=== PATIENT | male | born 1965 | race American Indian/Alaskan Native ===

== ENCOUNTER 2020-05-19 10:00 | Inpatient (IN) | payer OTHER ==
[2020-05-19] MEDS ORDERED: SODIUM CHLORIDE 0.9% 1000 ML IV SOLN IV ONE (11:29)
--- NOTE | 2020-05-19 11:54 | Emergency Department Report ---
ED General Adult HPI - General Chief complaint: Urogenital-Male Stated complaint: HEMORRHOIDS Time Seen by Provider: 05/19/20 11:29 Source: patient Mode of arrival: Ambulatory Limitations: No Limitations - History of Present Illness Initial comments: 54-year male with a past medical history of hypertension, diabetes, gout, presents to the hospital complaining of rectal pain for the last 5 days. Contrary to triage patient denies that he has a history of hemorrhoids. He denies hematochezi. Pain is with the palpation and coughing. He has been experi encing intermittent fevers and chills with some mild nausea today. Patient denies any receptive anal intercourse. He denies vomiting, abdominal pain, cough, shortness of breath, loss of sense of taste or smell. Last negative Covid test was in "February or March". Patient is not vaccinated for Covid. - Related Data Home Medications Medication Instructions Recorded Confirmed Last Taken Losartan [Cozaar] 25 mg PO QDAY 05/19/20 05/19/20 Unknown amLODIPine [Norvasc] 5 mg PO DAILY 05/19/20 05/19/20 Unknown hydroCHLOROthiazide [HCTZ] 25 mg PO QDAY 05/19/20 05/19/20 Unknown metFORMIN [Glucophage] 500 mg PO BID 05/19/20 05/19/20 Unknown Allergies Allergy/AdvReac Type Severity Reaction Status Date / Time No Known Allergies Allergy Verified 05/19/20 11:49 ED Review of Systems ROS: Stated complaint: HEMORRHOIDS Other details as noted in HPI Comment: All other systems reviewed and negative ED Past Medical Hx - Past Medical History Previous Medical History?: Yes Hx Hypertension: Yes Hx Dementia: Yes Additional medical history: DM II; prior gout - Surgical History Past Surgical History?: No - Social History Smoking Status: Never Smoker Substance Use Type: Alcohol - Medications Home Medications: Home Medications Medication Instructions Recorded Confirmed Last Taken Type Losartan [Cozaar] 25 mg PO QDAY 05/19/20 05/19/20 Unknown History amLODIPine [Norvasc] 5 mg PO DAILY 05/19/20 05/19/20 Unknown History hydroCHLOROthiazide [HCTZ] 25 mg PO QDAY 05/19/20 05/19/20 Unknown History metFORMIN [Glucophage] 500 mg PO BID 05/19/20 05/19/20 Unknown History ED Physical Exam - General Limitations: No Limitations - Other Other exam information: General: No acute distress Head: Atraumatic Eyes: normal appearance ENT: Moist mucous membranes Neck: Normal appearance, no midline tenderness Chest: Clear to auscultation bilaterally CV: Regular rate and rhythm Abdomen: Soft, normal bowel sounds, nontender, nondistended, no rebound or guarding Rectal: Patient has tenderness at the right gluteal fold near the perianal area and also appears to have a tender area of swelling at the 12:00 area of the anal area. Back: Normal inspection Extremity: Normal inspection, full range of motion Neuro: Alert O x 3, no facial asymmetry, speech clear, no gross motor sensory deficit Psych: Appropriate behavior Skin: No rash ED Course Vital Signs 05/19/20 05/19/20 05/19/20 10:35 11:52 12:00 Temperature 100.7 F H Pulse Rate 110 H 97 H 89 Respiratory 22 Rate Blood Pressure 181/91 Blood Pressure 174/81 163/70 [Left] O2 Sat by Pulse 96 96 97 Oximetry 05/19/20 05/19/20 05/19/20 13:50 15:55 17:51 Temperature Pulse Rate 79 93 H 91 H Respiratory Rate Blood Pressure Blood Pressure 165/66 167/90 189/90 [Left] O2 Sat by Pulse 99 97 97 Oximetry 05/19/20 18:58 Temperature Pulse Rate 91 H Respiratory Rate Blood Pressure Blood Pressure 169/89 [Left] O2 Sat by Pulse 99 Oximetry - Reevaluation(s) Reevaluation #1: 05/19/20 16:02 Patient received over 3 L of normal saline and still has no urine output. Additional 1 L ordered. 05/19/20 16:11 Patient reports that he did not receive any improvement in pain after morphine 4 mg. Dilaudid 0.5 mg ordered 05/19/20 17:20 Nurse informed me that patient was not in the room when she went to give him pain medication. I called the [phone] number on the chart and spoke to patient significant other since we cannot find him in the department. She states to her knowledge she did not leave and she believes that he is here somewhere. I informed her that if she hears from him please encourage him to stay because he would need surgical treatment of his abscess and IV antibiotics. I instructed nurse to call the alternative [phone] number listed on the chart since she was unable to find the patient after checking all the bathrooms and his clothes/belongings are no longer in the room 05/19/20 17:23 Noted for me that she try the alternative [phone] number x3 and there was no response. At this time we are still unable to locate patient 05/19/20 17:40 Patient return to the ER at this time with IV in place. States he went outside to get some sunshine and warm air. He states he was cold. He states his significant other/ did call him and told him to return to the ER. Patient encouraged not to leave the department without informing staff. - Consultations Consultation #1: 05/19/20 16:[address] Godfrey general surgeon on-call who plans to perform I&D tomorrow. Recommends broad-spectrum antibiotics and n.p.o. after midnight ED Medical Decision Making - Lab Data Result diagrams: 05/19/20 11:46 05/19/20 11:46 Lab Results 05/19/20 05/19/20 05/19/20 Range/Units 11:46 11:46 11:46 WBC 8.0 (4.5-11.0) K/mm3 RBC 4.54 (3.65-5.03) M/mm3 Hgb 13.2 (11.8-15.2) gm/dl Hct 38.4 (35.5-45.6) % MCV 85 (84-94) fl MCH 29 (28-32) pg MCHC 34 (32-34) % RDW 15.1 (13.2-15.2) % Plt Count 438 (140-440) K/mm3 Lymph % (Auto) 10.8 L (13.4-35.0) % [place] % (Auto) 16.0 H (0.0-7.3) % Eos % (Auto) 0.2 (0.0-4.3) % Baso % (Auto) 0.1 (0.0-1.8) % Lymph # (Auto) 0.9 L (1.2-5.4) K/mm3 [place] # (Auto) 1.3 H (0.0-0.8) K/mm3 Eos # (Auto) 0.0 (0.0-0.4) K/mm3 Baso # (Auto) 0.0 (0.0-0.1) K/mm3 Seg Neutrophils % 72.9 H (40.0-70.0) % Seg Neutrophils # 5.8 (1.8-7.7) K/mm3 Sodium 135 L (137-145) mmol/L Potassium 2.8 L* (3.6-5.0) mmol/L Chloride 92.1 L (98-107) mmol/L Carbon Dioxide 30 (22-30) mmol/L Anion Gap 16 mmol/L BUN 10 (9-20) mg/dL Creatinine 0.8 (0.8-1.3) mg/dL Estimated GFR > 60 ml/min BUN/Creatinine Ratio 13 % Glucose 149 H (75-100) mg/dL Lactic Acid 1.50 (0.7-2.0) mmol/L Calcium 10.1 (8.4-10.2) mg/dL Total Bilirubin 1.00 (0.1-1.2) mg/dL AST 28 (5-40) units/L ALT 23 (7-56) units/L Alkaline Phosphatase 80 (35-129) units/L Total Protein 7.7 (6.3-8.2) g/dL Albumin 4.0 (3.9-5) g/dL Albumin/Globulin Ratio 1.1 % Lipase 12 L (13-60) units/L - Medical Decision Making 54-year-old male presents with perianal pain and fever. Positive perianal abscess confirmed on CT. No signs of severe sepsis or septic shock. Patient provided IV Zosyn. Surgery consulted with plan for I&D tomorrow. N.p.o. after midnight requested. Hypokalemia noted. P.o. potassium ordered. Magnesium added to lab work and pending at disposition. Patient treated with morphine, dialudid, and Zofran for pain while in the ED Critical Care Time: No Critical care attestation.: If time is entered above; I have spent that time in minutes in the direct care of this critically ill patient, excluding procedure time. ED Disposition Clinical Impression: Perianal abscess, Diabetes, Hypokalemia Disposition: OP ADMIT IP TO THIS HOSP Is pt being admited?: Yes Condition: Stable Time of Disposition: 16:03 (Dr Tubbs/hosp )
[2020-05-19] MEDS ORDERED: ONDANSETRON 4 MG/2 ML INJ IV ONE (12:06)
[2020-05-19] MEDS ORDERED: PIPERACIL/TAZOBACTA 4.5/NS 100 4.5 GM/100 ML VIAL IV ONE (12:06)
[2020-05-19] MEDS ORDERED: MORPHINE 4 MG/1 ML INJ IV ONE (12:06)
[2020-05-19 12:31] LABS: Basophils % (Auto) 0.1 % (0.0-1.8); Eosinophils % (Auto) 0.2 % (0.0-4.3); Hematocrit 38.4 % (35.5-45.6); Hemoglobin 13.2 gm/dl (11.8-15.2); Lymphocytes # (Auto) 0.9 K/mm3 (1.2-5.4); Lymphocytes % (Auto) 10.8 % (13.4-35.0); Mean Corpuscular HGB Conc 34 % (32-34); Mean Corpuscular Volume 85 fl (84-94); Monocytes # (Auto) 1.3 K/mm3 (0.0-0.8); Platelet Count 438 K/mm3 (140-440); Red Blood Count 4.54 M/mm3 (3.65-5.03); Red Cell Distribution Width 15.1 % (13.2-15.2)
[2020-05-19] MEDS ORDERED: ACETAMINOPHEN 325 MG TAB PO ONE (12:43)
[2020-05-19 13:08] LABS: Alanine Aminotransferase 23 units/L (7-56); BUN/Creatinine Ratio 13; Blood Urea Nitrogen 10 mg/dL (9-20); Calcium 10.1 mg/dL (8.4-10.2); Hemolysis Index 32
--- NOTE | 2020-05-19 14:58 | Cat Scan Report ---
CT ABDOMEN AND PELVIS WITH CONTRAST INDICATION / CLINICAL INFORMATION: Anal/rectal pain.. TECHNIQUE: Axial CT images were obtained through the abdomen and pelvis after IV contrast. All CT sc ans at this location are performed using CT dose reduction for ALARA by means of automated exposure c ontrol. COMPARISON: None available. FINDINGS: LOWER CHEST: Patient is prone with dependent changes in the right middle lobe and lingula. Lung bases otherwise clear. LIVER: No significant abnormality GALLBLADDER/BILIARY TREE: No significant abnormality PANCREAS: No significant abnormality SPLEEN: No significant abnormality ADRENALS: No significant abnormalityNo significant abnormality KIDNEYS / URETER: URINARY BLADDER: No significant abnormality REPRODUCTIVE ORGANS: No significant abnormality STOMACH / SMALL BOWEL: Stomach and small bowel are normal in caliber. No evidence of bowel inflammati on. COLON: The colon is unremarkable. The appendix is normal in caliber. LYMPH NODES: No significant adenopathy. VASCULATURE: Mild atherosclerotic calcification without acute abnormality. OTHER: There is abnormal soft tissue thickening of the right gluteal fold with 7.1 x 3.1 x 5.0 cm (AP by transverse by craniocaudal) peripherally enhancing collection, compatible with perianal abscess. SKELETAL SYSTEM: Remote bilateral pars defects at L3 without significant listhesis. No acute process. IMPRESSION: 1. 7.1 cm perianal abscess. 2. Other incidental findings as above. Signer Name: Msohe Lantigua MD Signed: 05/19/2020 2:53 PM Workstation Name: [id number]
[2020-05-19] MEDS ORDERED: POTASSIUM CHLORIDE ER 20 MEQ TAB PO ONE (15:47)
[2020-05-19] MEDS ORDERED: HYDROmorphone 1 MG/1 ML INJ IV ONE ×2 (16:09→18:36)
--- NOTE | 2020-05-19 18:45 | Consultation ---
History of Present Illness Consult date: 05/19/20 Chief complaint: Arianne-rectal pain - History of present illness History of present illness: 54 yo diabetic male with 1 week h/o progressive right arianne-rectal pain. No h/o similar problems. Past History Past Medical History: diabetes, hypertension Medications and Allergies Allergies Allergy/AdvReac Type Severity Reaction Status Date / Time No Known Allergies Allergy Verified 05/19/20 11:49 Home Medications Medication Instructions Recorded Confirmed Last Taken Type Losartan [Cozaar] 25 mg PO QDAY 05/19/20 05/19/20 Unknown History amLODIPine [Norvasc] 5 mg PO DAILY 05/19/20 05/19/20 Unknown History hydroCHLOROthiazide [HCTZ] 25 mg PO QDAY 05/19/20 05/19/20 Unknown History metFORMIN [Glucophage] 500 mg PO BID 05/19/20 05/19/20 Unknown History Review of Systems All systems: negative (none) Exam Vital Signs Temp Pulse Resp BP Pulse Ox 100.7 F H 110 H 22 181/91 96 05/19/20 10:35 05/19/20 10:35 05/19/20 10:35 05/19/20 10:35 05/19/20 10:35 - General physical appearance Positive: well developed, well nourished, no distress - Eyes Positive: PERRL, normal occular movement - ENT Positive: normal pinna, normal nares, normal mucosa, no hearing loss, no congestion - Neck Positive: no masses, no bruits, trachea midline, no venous distension - Respiratory Positive: normal expansion, normal respiratory effort, clear to auscultation - Cardiovascular Rhythm: regular Heart Sounds: Present: S1 & S2. Absent: rub, click - Extremities Extremities: no ischemia, pulses symmetrical, No edema - Breasts Breasts: normal, no mass, no skin changes - Abdomen Abdomen: Present: soft, bowel sounds normal. Absent: tender, distended Hernia: none - Genitourinary Male Genitourinary: normal Female Genitourinary: normal - Rectum Rectum: other (Pt is markedly tender in the right perianal area at 1 o'clock in the knee chest position.) - Integumentary no rash, no growths, no abnormal pigmentation - Neurologic Neurologic: alert and oriented to time, place and person, motor strength and sensation are grossly intact - Musculoskeletal normal gait, normal posture - Psychiatric Psychiatric: appropriate mood/affect, intact judgment & insight Results - Labs 05/19/20 11:46 05/19/20 11:46 Abnormal lab results 05/19/20 05/19/20 Range/Units 11:46 11:46 Lymph % (Auto) 10.8 L (13.4-35.0) % [place] % (Auto) 16.0 H (0.0-7.3) % Lymph # (Auto) 0.9 L (1.2-5.4) K/mm3 [place] # (Auto) 1.3 H (0.0-0.8) K/mm3 Seg Neutrophils % 72.9 H (40.0-70.0) % Sodium 135 L (137-145) mmol/L Potassium 2.8 L* (3.6-5.0) mmol/L Chloride 92.1 L (98-107) mmol/L Glucose 149 H (75-100) mg/dL Lipase 12 L (13-60) units/L Diabetes panel 05/19/20 Range/Units 11:46 Sodium 135 L (137-145) mmol/L Potassium 2.8 L* (3.6-5.0) mmol/L Chloride 92.1 L (98-107) mmol/L Carbon Dioxide 30 (22-30) mmol/L BUN 10 (9-20) mg/dL Creatinine 0.8 (0.8-1.3) mg/dL Glucose 149 H (75-100) mg/dL Calcium 10.1 (8.4-10.2) mg/dL AST 28 (5-40) units/L ALT 23 (7-56) units/L Alkaline Phosphatase 80 (35-129) units/L Total Protein 7.7 (6.3-8.2) g/dL Albumin 4.0 (3.9-5) g/dL Calcium panel 05/19/20 Range/Units 11:46 Calcium 10.1 (8.4-10.2) mg/dL Albumin 4.0 (3.9-5) g/dL Pituitary panel 05/19/20 Range/Units 11:46 Sodium 135 L (137-145) mmol/L Potassium 2.8 L* (3.6-5.0) mmol/L Chloride 92.1 L (98-107) mmol/L Carbon Dioxide 30 (22-30) mmol/L BUN 10 (9-20) mg/dL Creatinine 0.8 (0.8-1.3) mg/dL Glucose 149 H (75-100) mg/dL Calcium 10.1 (8.4-10.2) mg/dL Adrenal panel 05/19/20 Range/Units 11:46 Sodium 135 L (137-145) mmol/L Potassium 2.8 L* (3.6-5.0) mmol/L Chloride 92.1 L (98-107) mmol/L Carbon Dioxide 30 (22-30) mmol/L BUN 10 (9-20) mg/dL Creatinine 0.8 (0.8-1.3) mg/dL Glucose 149 H (75-100) mg/dL Calcium 10.1 (8.4-10.2) mg/dL Total Bilirubin 1.00 (0.1-1.2) mg/dL AST 28 (5-40) units/L ALT 23 (7-56) units/L Alkaline Phosphatase 80 (35-129) units/L Total Protein 7.7 (6.3-8.2) g/dL Albumin 4.0 (3.9-5) g/dL - Imaging CT scan - abdomen: report reviewed CT scan - pelvis: report reviewed Assessment and Plan - Patient Problems (1) Perianal abscess Current Visit: Yes Status: Acute Plan to address problem: 1) Correct hypokalemia (by hospitalist) 2) NPO after MN 3) Broad spectrum IV antibiotics (Levaquin) 4) I&D tomorrow
--- NOTE | 2020-05-19 21:29 | History and Physical Report ---
History of Present Illness Date of examination: 05/19/20 Date of admission: 05/19/20 16:05 Chief complaint: Perianal pain for 1 week History of present illness: 53-year-old male with history of hypertension and diabetes comes in for perianal pain for the last 5 days. Pain is about 8 on a scale of 1-10. Pain is exacerbated with palpation and coughing. Patient also has been experiencing intermittent fevers and chills. No anal intercourse as per patient. Patient is and having children. Patient had a Covid test and last couple of months and was negative. Patient is not vaccinated for Covid. Dislocation is an exacerbating factor - Past Medical History Previous Medical History?: Yes Hypertension: Yes Additional medical history: DM II; prior gout - Surgical History Past Surgical History?: No - Social History Smoking Status: Never Smoker Substance Use Type: Alcohol - Medications Home Medications: Home Medications Medication Instructions Recorded Confirmed Last Taken Type Losartan [Cozaar] 25 mg PO QDAY 05/19/20 05/19/20 Unknown History amLODIPine [Norvasc] 5 mg PO DAILY 05/19/20 05/19/20 Unknown History hydroCHLOROthiazide [HCTZ] 25 mg PO QDAY 05/19/20 05/19/20 Unknown History metFORMIN [Glucophage] 500 mg PO BID 05/19/20 05/19/20 Unknown History Review of Systems ROS: Constitutional no weight loss or weight gain no fever or chills HEENT no sore throat no post nasal drip no diplopia Neck no neck stiffness no lymph gland enlargement Chest and lungs no shortness of breath cough or wheezing CVS no chest pain no diaphoresis no palpitations GI severe perirectal pain Genitourinary system no dysuria no flank pain Musculoskeletal system no muscle pains no joint pains 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 Skin no rash no itching Psychiatric no depression no homicidal or suicidal tendencies Hematologic no lymphedema or bruising Endocrine no polydipsia no polyuria no cold intolerance no heat intolerance Past History Past Medical History: diabetes, hypertension Medications and Allergies Allergies Allergy/AdvReac Type Severity Reaction Status Date / Time No Known Allergies Allergy Verified 05/19/20 11:49 Home Medications Medication Instructions Recorded Confirmed Last Taken Type Losartan [Cozaar] 25 mg PO QDAY 05/19/20 05/19/20 Unknown History amLODIPine [Norvasc] 5 mg PO DAILY 05/19/20 05/19/20 Unknown History hydroCHLOROthiazide [HCTZ] 25 mg PO QDAY 05/19/20 05/19/20 Unknown History metFORMIN [Glucophage] 500 mg PO BID 05/19/20 05/19/20 Unknown History Exam - Constitutional Vitals: Temp Pulse Resp BP Pulse Ox 100.1 F H 89 20 161/78 94 05/19/20 21:09 05/19/20 21:09 05/19/20 21:09 05/19/20 21:09 05/19/20 21:09 General appearance: Present: no acute distress, well-nourished - EENT Eyes: Present: PERRL ENT: hearing intact, clear oral mucosa - Neck Neck: Present: supple, normal ROM - Respiratory Respiratory effort: normal Respiratory: bilateral: CTA - Cardiovascular Heart rate: 78 Rhythm: regular Heart Sounds: Present: S1 & S2. Absent: rub, click - Extremities Extremities: no ischemia, pulses intact, pulses symmetrical, No edema Peripheral Pulses: within normal limits - Abdominal General gastrointestinal: Present: soft, non-tender, non-distended, normal bowel sounds Male genitourinary: Present: normal - Rectal Rectal Exam: deferred - Integumentary Integumentary: Present: clear, warm, dry - Musculoskeletal Musculoskeletal: gait normal, strength equal bilaterally - Psychiatric Psychiatric: appropriate mood/affect, intact judgment & insight - Neurologic Neurologic: CNII-XII intact, moves all extremities - Allied Health Allied health notes reviewed: nursing, case management Results - Labs CBC & Chem 7: 05/20/20 04:52 05/19/20 11:46 Labs: Laboratory Last Values WBC 8.0 K/mm3 (4.5-11.0) 05/19/20 11:46 RBC 4.54 M/mm3 (3.65-5.03) 05/19/20 11:46 Hgb 13.2 gm/dl (11.8-15.2) 05/19/20 11:46 Hct 38.4 % (35.5-45.6) 05/19/20 11:46 MCV 85 fl (84-94) 05/19/20 11:46 MCH 29 pg (28-32) 05/19/20 11:46 MCHC 34 % (32-34) 05/19/20 11:46 RDW 15.1 % (13.2-15.2) 05/19/20 11:46 Plt Count 438 K/mm3 (140-440) 05/19/20 11:46 Lymph % (Auto) 10.8 % (13.4-35.0) L 05/19/20 11:46 [place] % (Auto) 16.0 % (0.0-7.3) H 05/19/20 11:46 Eos % (Auto) 0.2 % (0.0-4.3) 05/19/20 11:46 Baso % (Auto) 0.1 % (0.0-1.8) 05/19/20 11:46 Lymph # (Auto) 0.9 K/mm3 (1.2-5.4) L 05/19/20 11:46 [place] # (Auto) 1.3 K/mm3 (0.0-0.8) H 05/19/20 11:46 Eos # (Auto) 0.0 K/mm3 (0.0-0.4) 05/19/20 11:46 Baso # (Auto) 0.0 K/mm3 (0.0-0.1) 05/19/20 11:46 Seg Neutrophils % 72.9 % (40.0-70.0) H 05/19/20 11:46 Seg Neutrophils # 5.8 K/mm3 (1.8-7.7) 05/19/20 11:46 Sodium 135 mmol/L (137-145) L 05/19/20 11:46 Potassium 2.8 mmol/L (3.6-5.0) L* 05/19/20 11:46 Chloride 92.1 mmol/L (98-107) L 05/19/20 11:46 Carbon Dioxide 30 mmol/L (22-30) 05/19/20 11:46 Anion Gap 16 mmol/L 05/19/20 11:46 BUN 10 mg/dL (9-20) 05/19/20 11:46 Creatinine 0.8 mg/dL (0.8-1.3) 05/19/20 11:46 Estimated GFR > 60 ml/min 05/19/20 11:46 BUN/Creatinine Ratio 13 % 05/19/20 11:46 Glucose 149 mg/dL (75-100) H 05/19/20 11:46 Lactic Acid 1.10 mmol/L (0.7-2.0) 05/19/20 Unknown Calcium 10.1 mg/dL (8.4-10.2) 05/19/20 11:46 Magnesium 1.70 mg/dL (1.7-2.3) 05/19/20 11:46 Total Bilirubin 1.00 mg/dL (0.1-1.2) 05/19/20 11:46 AST 28 units/L (5-40) 05/19/20 11:46 ALT 23 units/L (7-56) 05/19/20 11:46 Alkaline Phosphatase 80 units/L (35-129) 05/19/20 11:46 Total Protein 7.7 g/dL (6.3-8.2) 05/19/20 11:46 Albumin 4.0 g/dL (3.9-5) 05/19/20 11:46 Albumin/Globulin Ratio 1.1 % 05/19/20 11:46 Lipase 12 units/L (13-60) L 05/19/20 11:46 Microbiology: Microbiology 05/19/20 11:46 Peripheral/Venous Blood Culture - Preliminary Culture in Progress 05/19/20 11:46 Peripheral/Venous Blood Culture - Preliminary Culture in Progress - Imaging and Cardiology Imaging and Cardiology: CT abdomen and pelvis 7.1 cm perianal abscess Other incidental findings as above Number findings there is abnormal soft tissue thickening of the right gluteal fold with a 7.1 cm X3.1 0.0 cm [place]/IV: Voiding Method Toilet Assessment and Plan Advance Directives: Yes (Full code) VTE prophylaxis?: Chemical Plan of care discussed with patient/family: Yes - Patient Problems (1) Perianal abscess Current Visit: Yes Status: Acute Plan to address problem: Needs incision and drainage of abscess Surgery consulted Patient started on IV Unasyn and IV vancomycin (2) Hypokalemia Current Visit: Yes Status: Acute Plan to address problem: Supplemented (3) T2DM (type 2 diabetes mellitus) Current Visit: Yes Status: Chronic 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
[2020-05-19] MEDS ORDERED: PROMETHAZINE 25 MG RECT SUPP PR PRN (21:30)
[2020-05-19] MEDS ORDERED: METOCLOPRAMIDE 10 MG/2 ML INJ IV PRN (21:30)
[2020-05-19] MEDS ORDERED: oxyCODONE /ACETAMINOPHEN 5-325MG TAB PO PRN (21:30)
[2020-05-19] MEDS ORDERED: SODIUM CHLORIDE 0.9% 1000 ML 1,000 ML IV SCH (21:30)
[2020-05-19] MEDS ORDERED: ONDANSETRON 4 MG/2 ML INJ IV PRN (21:30)
[2020-05-19] MEDS ORDERED: VANCOMYCIN 2,000 MG in SODIUM CHLORIDE 0.9% 500 ML 500 ML IV ONE (22:00)
[2020-05-19] MEDS ORDERED: VANCOMYCIN PHARMACY TO DOSE IV SCH (22:00)
[2020-05-19] MEDS: amLODIPine 5 MG TAB PO SCH (22:42)
[2020-05-19] MEDS: LOSARTAN 25 MG TAB PO SCH (22:42)
[2020-05-19] MEDS: HEPARIN 5,000 UNIT/1 ML VIAL SUB-Q SCH (22:43)
[2020-05-19] MEDS: FAMOTIDINE 20 MG/2 ML INJ IV SCH (22:43)
[2020-05-19] MEDS: HYDROmorphone 1 MG/1 ML INJ IV PRN (22:44)
[2020-05-19] MEDS: AMPICILLIN/SULBACTA 3GM/100ML 3 GM/100 ML BAG IV SCH (23:00)
[2020-05-20 02:52] LABS: Bilirubin,Urine NEG (Negative); Blood,Urine NEG (Negative); Color,Urine Yellow (Yellow); Mucus,Urine FEW /HPF; Protein,Urine <15 mg/dL mg/dL (Negative)
[2020-05-20] MEDS: AMPICILLIN/SULBACTA 3GM/100ML 3 GM/100 ML BAG IV SCH ×4 (04:26→21:33)
[2020-05-20] MEDS: HYDROmorphone 1 MG/1 ML INJ IV PRN ×3 (04:26→12:48)
[2020-05-20 05:56] LABS: Basophils % (Auto) 0.2 % (0.0-1.8); Eosinophils # (Auto) 0.1 K/mm3 (0.0-0.4); Eosinophils % (Auto) 0.8 % (0.0-4.3); Hematocrit 34.5 % (35.5-45.6); Lymphocytes # (Auto) 0.8 K/mm3 (1.2-5.4); Lymphocytes % (Auto) 11.1 % (13.4-35.0); Mean Corpuscular HGB Conc 35 % (32-34); Mean Corpuscular Volume 85 fl (84-94); Monocytes # (Auto) 1.1 K/mm3 (0.0-0.8); Monocytes % (Auto) 15.8 % (0.0-7.3); Platelet Count 362 K/mm3 (140-440); Red Blood Count 4.06 M/mm3 (3.65-5.03); Red Cell Distribution Width 14.9 % (13.2-15.2)
[2020-05-20] MEDS: ACETAMINOPHEN 325 MG TAB PO PRN ×2 (06:28→17:10)
[2020-05-20 07:10] LABS: Alanine Aminotransferase 19 units/L (7-56); Albumin 3.5 g/dL (3.9-5); Blood Urea Nitrogen 8 mg/dL (9-20); Calcium 8.8 mg/dL (8.4-10.2); Hemolysis Index 3
[2020-05-20 07:13] LABS: BUN/Creatinine Ratio 11
[2020-05-20] MEDS ORDERED: POTASSIUM CHLORIDE ER 20 MEQ TAB PO NR (07:30)
[2020-05-20] MEDS: POTASSIUM CHLORIDE 10 MEQ 10 MEQ/100 ML BAG IV SCH ×4 (09:14→21:27)
[2020-05-20] MEDS: amLODIPine 5 MG TAB PO SCH (09:15)
[2020-05-20] MEDS: HEPARIN 5,000 UNIT/1 ML VIAL SUB-Q SCH ×2 (09:15→21:28)
[2020-05-20] MEDS: LOSARTAN 25 MG TAB PO SCH (09:15)
[2020-05-20] MEDS: FAMOTIDINE 20 MG/2 ML INJ IV SCH ×2 (09:15→21:27)
--- NOTE | 2020-05-20 10:32 | Progress Note ---
Assessment and Plan Assessment and plan: --Perianal abscess Current Visit: Yes Status: Acute Plan to address problem: Surgery evaluated, scheduled for I&D today Continue current antibiotics, follow cultures Supportive care, n.p.o. status --Sepsis; secondary to perianal abscess Current Visit: Yes Status: Chronic Plan to address problem: continue antibiotics supportive care IND -- Hypokalemia Current Visit: Yes Status: Acute Plan to address problem: Replenish per protocol monitor levels --T2DM (type 2 diabetes mellitus) Current Visit: Yes Status: Chronic Plan to address problem: Accu-Chek sliding scale coverage ADA diet Insulin as needed --DVT prophylaxis Current Visit: Yes Status: Acute Plan to address problem: On heparin and GI prophylaxis Closely monitor patient and adjust management as needed Plan of care reviewed with the patient and his nurse History Interval history: I have seen and examined the patient at the bedside Patient's chart and medications reviewed She was admitted with rectal abscess N.p.o. status for possible I&D per surgery Patient complains of severe discomfort and pain Vital signs noted Hospitalist Physical - Constitutional Vitals: Temp Pulse Resp BP Pulse Ox 101.1 F H 98 H 20 162/96 94 05/20/20 06:17 05/20/20 06:17 05/20/20 06:17 05/20/20 06:17 05/20/20 06:17 General appearance: Present: no acute distress, well-nourished - EENT Eyes: Present: PERRL, EOM intact - Neck Neck: Present: supple, normal ROM - Respiratory Respiratory effort: normal Respiratory: bilateral: diminished, negative: rales, rhonchi, wheezing - Cardiovascular Rhythm: regular Heart Sounds: Present: S1 & S2 - Extremities Extremities: no ischemia, No edema - Abdominal General gastrointestinal: soft, non-tender, non-distended, normal bowel sounds - Integumentary Integumentary: Present: clear, warm - Psychiatric Psychiatric: appropriate mood/affect, cooperative - Neurologic Neurologic: CNII-XII intact, moves all extremities Results - Labs CBC & Chem 7: 05/20/20 04:52 05/20/20 04:52 Labs: Laboratory Last Values WBC 7.1 K/mm3 (4.5-11.0) 05/20/20 04:52 RBC 4.06 M/mm3 (3.65-5.03) 05/20/20 04:52 Hgb 12.0 gm/dl (11.8-15.2) 05/20/20 04:52 Hct 34.5 % (35.5-45.6) L 05/20/20 04:52 MCV 85 fl (84-94) 05/20/20 04:52 MCH 30 pg (28-32) 05/20/20 04:52 MCHC 35 % (32-34) H 05/20/20 04:52 RDW 14.9 % (13.2-15.2) 05/20/20 04:52 Plt Count 362 K/mm3 (140-440) 05/20/20 04:52 Lymph % (Auto) 11.1 % (13.4-35.0) L 05/20/20 04:52 [place] % (Auto) 15.8 % (0.0-7.3) H 05/20/20 04:52 Eos % (Auto) 0.8 % (0.0-4.3) 05/20/20 04:52 Baso % (Auto) 0.2 % (0.0-1.8) 05/20/20 04:52 Lymph # (Auto) 0.8 K/mm3 (1.2-5.4) L 05/20/20 04:52 [place] # (Auto) 1.1 K/mm3 (0.0-0.8) H 05/20/20 04:52 Eos # (Auto) 0.1 K/mm3 (0.0-0.4) 05/20/20 04:52 Baso # (Auto) 0.0 K/mm3 (0.0-0.1) 05/20/20 04:52 Seg Neutrophils % 72.1 % (40.0-70.0) H 05/20/20 04:52 Seg Neutrophils # 5.1 K/mm3 (1.8-7.7) 05/20/20 04:52 Sodium 139 mmol/L (137-145) 05/20/20 04:52 Potassium 3.2 mmol/L (3.6-5.0) L 05/20/20 04:52 Chloride 99.1 mmol/L (98-107) 05/20/20 04:52 Carbon Dioxide 30 mmol/L (22-30) 05/20/20 04:52 Anion Gap 13 mmol/L 05/20/20 04:52 BUN 8 mg/dL (9-20) L 05/20/20 04:52 Creatinine 0.7 mg/dL (0.8-1.3) L 05/20/20 04:52 Estimated GFR > 60 ml/min 05/20/20 04:52 BUN/Creatinine Ratio 11 % 05/20/20 04:52 Glucose 116 mg/dL (75-100) H 05/20/20 04:52 POC Glucose 104 mg/dL (70-105) 05/20/20 08:36 Hemoglobin A1c 7.1 % (4-6) H 05/20/20 04:52 Lactic Acid 1.10 mmol/L (0.7-2.0) 05/19/20 Unknown Calcium 8.8 mg/dL (8.4-10.2) 05/20/20 04:52 Magnesium 1.70 mg/dL (1.7-2.3) 05/19/20 11:46 Total Bilirubin 1.10 mg/dL (0.1-1.2) 05/20/20 04:52 AST 19 units/L (5-40) 05/20/20 04:52 ALT 19 units/L (7-56) 05/20/20 04:52 Alkaline Phosphatase 81 units/L (35-129) 05/20/20 04:52 Total Protein 7.0 g/dL (6.3-8.2) 05/20/20 04:52 Albumin 3.5 g/dL (3.9-5) L 05/20/20 04:52 Albumin/Globulin Ratio 1.0 % 05/20/20 04:52 Lipase 12 units/L (13-60) L 05/19/20 11:46 Urine Color Yellow (Yellow) 05/20/20 02:22 Urine Turbidity Clear (Clear) 05/20/20 02:22 Urine pH 6.0 (5.0-7.0) 05/20/20 02:22 Ur Specific [place] 1.021 (1.003-1.030) 05/20/20 02:22 Urine Protein <15 mg/dl mg/dL (Negative) 05/20/20 02:22 Urine Glucose (UA) Neg mg/dL (Negative) 05/20/20 02:22 Urine Ketones Tr mg/dL (Negative) 05/20/20 02:22 Urine Blood Neg (Negative) 05/20/20 02:22 Urine Nitrite Neg (Negative) 05/20/20 02:22 Urine Bilirubin Neg (Negative) 05/20/20 02:22 Urine Urobilinogen 2.0 mg/dL (<2.0) 05/20/20 02:22 Ur Leukocyte Esterase Neg (Negative) 05/20/20 02:22 Urine WBC (Auto) 1.0 /HPF (0.0-6.0) 05/20/20 02:22 Urine RBC (Auto) 1.0 /HPF (0.0-6.0) 05/20/20 02:22 Urine Mucus Few /HPF 05/20/20 02:22 Microbiology: Microbiology 05/19/20 11:46 Peripheral/Venous Blood Culture - Preliminary Culture in Progress 05/19/20 11:46 Peripheral/Venous Blood Culture - Preliminary Culture in Progress Argueta/IV: Voiding Method Toilet Active Medications - Current Medications Current Medications: Generic Name Dose Route Start Last Admin Trade Name Freq PRN Reason Stop Dose Admin Acetaminophen 650 mg 05/19/20 21:30 05/20/20 06:28 Acetaminophen 325 Mg Tab PO 650 mg Q4H PRN Administration Pain MILD(1-3)/Fever >100.5/BARDALES Amlodipine Besylate 10 mg 05/19/20 22:00 05/20/20 09:15 Amlodipine 5 Mg Tab PO 10 mg DAILY VINNY Administration Famotidine 20 mg 05/19/20 22:00 05/20/20 09:15 Famotidine 20 Mg/2 Ml Inj IV 20 mg BID VINNY Administration Heparin Sodium (Porcine) 5,000 unit 05/19/20 22:00 05/20/20 09:15 Heparin 5,000 Unit/1 Ml Vial SUB-Q 5,000 unit Q12HR VINNY Administration Hydromorphone HCl 0.5 mg 05/19/20 21:30 05/20/20 06:46 Hydromorphone 1 Mg/1 Ml Inj IV 0.5 mg Q3H PRN Administration Pain , Severe (7-10) Sodium Chloride 1,000 mls @ 42 mls/hr 05/19/20 21:30 Nacl 0.9% 1000 Ml IV DIRECT VINNY Ampicillin Sodium/Sulbactam Sodium 3 gm in 100 mls @ 200 mls/hr 05/19/20 22:00 05/20/20 09:13 Unasyn/Ns 3 Gm/100 Ml IV 200 mls/hr Q6H VINNY Administration Protocol Vancomycin HCl 1,500 mg/ 530 mls @ 333.333 mls/hr 05/20/20 12:00 Sodium Chloride IV Q12H VINNY Potassium Chloride 10 meq in 100 mls @ 100 mls/hr 05/20/20 08:00 05/20/20 09:14 Kcl 10meq/100ml IV 05/20/20 11:59 100 mls/hr Q1H VINNY Administration Losartan Potassium 50 mg 05/19/20 22:00 05/20/20 09:15 Losartan 25 Mg Tab PO 50 mg QDAY VINNY Administration Metoclopramide HCl 10 mg 05/19/20 21:30 Metoclopramide 10 Mg/2 Ml Inj IV Q6H PRN Nausea And Vomiting Ondansetron HCl 4 mg 05/19/20 21:30 Ondansetron 4 Mg/2 Ml Inj IV Q8H PRN Nausea And Vomiting Oxycodone/Acetaminophen 1 tab 05/19/20 21:30 Oxycodone /Acetaminophen 5-325mg Tab PO Q6H PRN Pain, Moderate (4-6) Promethazine HCl 25 mg 05/19/20 21:30 Promethazine 25 Mg Rect Supp [place] Q6H PRN N/V IF NPO AND NO IV ACCESS Sodium Chloride 10 ml 05/19/20 22:00 05/20/20 10:06 Sodium Chloride 0.9% 10 Ml Flush Syringe IV Not Given BID VINNY Sodium Chloride 10 ml 05/19/20 21:30 Sodium Chloride 0.9% 10 Ml Flush Syringe IV PRN PRN LINE FLUSH
[2020-05-20] MEDS: VANCOMYCIN 1,500 MG in SODIUM CHLORIDE 0.9% 500 ML 500 ML IV SCH (11:05)
[2020-05-20] MEDS ORDERED: BUPIVACAINE-EPINEPHRINE/PF 0.5%-1:200,000 (30 ML) VIAL INFILTRATI ONE ×2 (14:37→17:07)
[2020-05-20] MEDS ORDERED: BUPIVACAINE/PF (0.5%) 5 MG/1 ML 30 ML VIAL INFILTRATI ONE (14:37)
--- NOTE | 2020-05-20 16:11 | Anesthesia Consultation ---
Anesthesia Consult and Med Hx Date of service: 05/20/20 - Airway Anesthetic Teeth Evaluation: Good ROM Head & Neck: Adequate Mental/Hyoid Distance: Adequate Mallampati Class: Class II Intubation Access Assessment: Good - Pulmonary Exam CTA: Yes - Cardiac Exam Cardiac Exam: RRR - Pre-Operative Health Status ASA Pre-Surgery Classification: ASA2 Proposed Anesthetic Plan: General - Cardiovascular System Hx Hypertension: Yes - Endocrine Hx Non-Insulin Dependent Diabetes: Yes - Other Systems Hx Cancer: No
--- NOTE | 2020-05-20 16:12 | Anesthesia Day of Surgery ---
Anesthesia Day of Surgery - Day of Surgery Patient Examined: Yes Patient H&P Reviewed: Yes Patient is NPO: Yes
[2020-05-20] MEDS ORDERED: fentaNYL 100 MCG/2 ML INJ ONE (16:16)
[2020-05-20] MEDS ORDERED: propofoL 200 MG/20 ML VIAL IV ONE (16:16)
[2020-05-20] MEDS ORDERED: HYDROmorphone 1 MG/1 ML INJ ONE (16:39)
[2020-05-20] MEDS ORDERED: ONDANSETRON 4 MG/2 ML INJ ONE (16:49)
[2020-05-20] MEDS ORDERED: KETOROLAC 30 MG/1 ML INJ ONE (16:49)
--- NOTE | 2020-05-20 16:51 | Procedure Note ---
Date of procedure: 05/20/20 Pre-op diagnosis: Perirectal abscess Post-op diagnosis: same Procedure: I&D of perirectal abscess Description of procedure: Pt was placed supine on the OR table. General anesthesia was administered. Pt was repositioned to a high lithotomy position. Perianal area was prepped and draped. The abscess was identified at about the 7 o'clock position. The abscess was unroofed with the Bovie. Drained pus was collected for C&S. The abscess cavity was aspirated of all pus and necrotic tissue. The abscess cavity was irrigated with warm saline and was found to be hemostatic. The skin and SQ tissue adjacent to the I&D wound was infiltrated with 9 ml of 0.5% Marcaine with epinephrine. Wound was packed open with a dilute Betadine moistened Kerlix roll followed by dry 4 X 4's secured with silk tape. Pt tolerated the procedure well. Pt was taken to PACU in stable condition. Anesthesia: other (LMA) Surgeon: JUSTIN DOWNEY Estimated blood loss: minimal Pathology: list (C&S) Specimen disposition: to lab Condition: stable Disposition: PACU
[2020-05-20] MEDS ORDERED: SODIUM CHLORIDE 0.9% IRR 1,500 ML BOTTLE IR ONE (17:07)
--- NOTE | 2020-05-20 17:35 | Post Anesthesia Evaluation ---
- Post Anesthesia Evaluation Patient Participated: Yes Airway Patent: Yes Stable Respiratory Function: Yes Nausea/Vomiting: No Temp > 96.8F: Yes Pain Manageable: Yes Adequeate Hydration: Yes Anesthesia Complications: No
[2020-05-21] MEDS: AMPICILLIN/SULBACTA 3GM/100ML 3 GM/100 ML BAG IV SCH ×2 (04:30→11:09)
[2020-05-21] MEDS: VANCOMYCIN 1,500 MG in SODIUM CHLORIDE 0.9% 500 ML 500 ML IV SCH (05:16)
[2020-05-21] MEDS: HYDROmorphone 1 MG/1 ML INJ IV PRN (09:51)
--- NOTE | 2020-05-21 09:56 | Progress Note ---
Assessment and Plan Assessment and plan: --Perianal abscess Current Visit: Yes Status: Acute Plan to address problem: Surgery evaluated, s/p I&D of perianal abscess Continue Vanco and Unasyn, follow cultures Wound care, surgery following --Sepsis; secondary to perianal abscess Current Visit: Yes Status: Chronic Plan to address problem: continue Vanco and Unasyn s/p I&D, postop care -- Hypokalemia Current Visit: Yes Status: Acute Plan to address problem: Replenish per protocol monitor levels --T2DM (type 2 diabetes mellitus) Current Visit: Yes Status: Chronic Plan to address problem: Accu-Chek sliding scale coverage ADA diet Insulin as needed --DVT prophylaxis Current Visit: Yes Status: Acute Plan to address problem: On heparin and GI prophylaxis Closely monitor patient and adjust management as needed Plan of care reviewed with the patient and his nurse Hospitalist Physical - Constitutional Vitals: Temp Pulse Resp BP Pulse Ox 98.8 F 81 20 158/92 97 05/21/20 04:50 05/21/20 04:50 05/21/20 04:50 05/21/20 04:50 05/21/20 04:50 General appearance: Present: no acute distress, well-nourished Results - Labs CBC & Chem 7: 05/20/20 04:52 05/20/20 04:52 Labs: Laboratory Last Values WBC 7.1 K/mm3 (4.5-11.0) 05/20/20 04:52 RBC 4.06 M/mm3 (3.65-5.03) 05/20/20 04:52 Hgb 12.0 gm/dl (11.8-15.2) 05/20/20 04:52 Hct 34.5 % (35.5-45.6) L 05/20/20 04:52 MCV 85 fl (84-94) 05/20/20 04:52 MCH 30 pg (28-32) 05/20/20 04:52 MCHC 35 % (32-34) H 05/20/20 04:52 RDW 14.9 % (13.2-15.2) 05/20/20 04:52 Plt Count 362 K/mm3 (140-440) 05/20/20 04:52 Lymph % (Auto) 11.1 % (13.4-35.0) L 05/20/20 04:52 [place] % (Auto) 15.8 % (0.0-7.3) H 05/20/20 04:52 Eos % (Auto) 0.8 % (0.0-4.3) 05/20/20 04:52 Baso % (Auto) 0.2 % (0.0-1.8) 05/20/20 04:52 Lymph # (Auto) 0.8 K/mm3 (1.2-5.4) L 05/20/20 04:52 [place] # (Auto) 1.1 K/mm3 (0.0-0.8) H 05/20/20 04:52 Eos # (Auto) 0.1 K/mm3 (0.0-0.4) 05/20/20 04:52 Baso # (Auto) 0.0 K/mm3 (0.0-0.1) 05/20/20 04:52 Seg Neutrophils % 72.1 % (40.0-70.0) H 05/20/20 04:52 Seg Neutrophils # 5.1 K/mm3 (1.8-7.7) 05/20/20 04:52 Sodium 139 mmol/L (137-145) 05/20/20 04:52 Potassium 3.2 mmol/L (3.6-5.0) L 05/20/20 04:52 Chloride 99.1 mmol/L (98-107) 05/20/20 04:52 Carbon Dioxide 30 mmol/L (22-30) 05/20/20 04:52 Anion Gap 13 mmol/L 05/20/20 04:52 BUN 8 mg/dL (9-20) L 05/20/20 04:52 Creatinine 0.7 mg/dL (0.8-1.3) L 05/20/20 04:52 Estimated GFR > 60 ml/min 05/20/20 04:52 BUN/Creatinine Ratio 11 % 05/20/20 04:52 Glucose 116 mg/dL (75-100) H 05/20/20 04:52 POC Glucose 167 mg/dL (70-105) H 05/20/20 21:33 Hemoglobin A1c 7.1 % (4-6) H 05/20/20 04:52 Lactic Acid 1.10 mmol/L (0.7-2.0) 05/19/20 Unknown Calcium 8.8 mg/dL (8.4-10.2) 05/20/20 04:52 Magnesium 1.70 mg/dL (1.7-2.3) 05/19/20 11:46 Total Bilirubin 1.10 mg/dL (0.1-1.2) 05/20/20 04:52 AST 19 units/L (5-40) 05/20/20 04:52 ALT 19 units/L (7-56) 05/20/20 04:52 Alkaline Phosphatase 81 units/L (35-129) 05/20/20 04:52 Total Protein 7.0 g/dL (6.3-8.2) 05/20/20 04:52 Albumin 3.5 g/dL (3.9-5) L 05/20/20 04:52 Albumin/Globulin Ratio 1.0 % 05/20/20 04:52 Lipase 12 units/L (13-60) L 05/19/20 11:46 Urine Color Yellow (Yellow) 05/20/20 02:22 Urine Turbidity Clear (Clear) 05/20/20 02:22 Urine pH 6.0 (5.0-7.0) 05/20/20 02:22 Ur Specific [place] 1.021 (1.003-1.030) 05/20/20 02:22 Urine Protein <15 mg/dl mg/dL (Negative) 05/20/20 02:22 Urine Glucose (UA) Neg mg/dL (Negative) 05/20/20 02:22 Urine Ketones Tr mg/dL (Negative) 05/20/20 02:22 Urine Blood Neg (Negative) 05/20/20 02:22 Urine Nitrite Neg (Negative) 05/20/20 02:22 Urine Bilirubin Neg (Negative) 05/20/20 02:22 Urine Urobilinogen 2.0 mg/dL (<2.0) 05/20/20 02:22 Ur Leukocyte Esterase Neg (Negative) 05/20/20 02:22 Urine WBC (Auto) 1.0 /HPF (0.0-6.0) 05/20/20 02:22 Urine RBC (Auto) 1.0 /HPF (0.0-6.0) 05/20/20 02:22 Urine Mucus Few /HPF 05/20/20 02:22 Microbiology: Microbiology 05/19/20 11:46 Peripheral/Venous Blood Culture - Preliminary NO GROWTH AFTER 24 HOURS 05/19/20 11:46 Peripheral/Venous Blood Culture - Preliminary NO GROWTH AFTER 24 HOURS Argueta/IV: Voiding Method Toilet Active Medications - Current Medications Current Medications: Generic Name Dose Route Start Last Admin Trade Name Freq PRN Reason Stop Dose Admin Acetaminophen 650 mg 05/19/20 21:30 05/20/20 17:10 Acetaminophen 325 Mg Tab PO 650 mg Q4H PRN Administration Pain MILD(1-3)/Fever >100.5/BARDALES Amlodipine Besylate 10 mg 05/19/20 22:00 05/20/20 09:15 Amlodipine 5 Mg Tab PO 10 mg DAILY VINNY Administration Famotidine 20 mg 05/21/20 10:00 Famotidine 20 Mg Tab PO BID VINNY Heparin Sodium (Porcine) 5,000 unit 05/19/20 22:00 05/20/20 21:28 Heparin 5,000 Unit/1 Ml Vial SUB-Q 5,000 unit Q12HR VINNY Administration Hydromorphone HCl 0.5 mg 05/19/20 21:30 05/20/20 12:48 Hydromorphone 1 Mg/1 Ml Inj IV 0.5 mg Q3H PRN Administration Pain , Severe (7-10) Sodium Chloride 1,000 mls @ 42 mls/hr 05/19/20 21:30 05/20/20 18:04 Nacl 0.9% 1000 Ml IV 42 mls/hr DIRECT VINNY Administration Ampicillin Sodium/Sulbactam Sodium 3 gm in 100 mls @ 200 mls/hr 05/19/20 22:00 05/21/20 04:30 Unasyn/Ns 3 Gm/100 Ml IV 200 mls/hr Q6H VINNY Administration Protocol Vancomycin HCl 1,500 mg/ 530 mls @ 333.333 mls/hr 05/21/20 18:00 Sodium Chloride IV Q12H VINNY Losartan Potassium 50 mg 05/19/20 22:00 05/20/20 09:15 Losartan 25 Mg Tab PO 50 mg QDAY VINNY Administration Metoclopramide HCl 10 mg 05/19/20 21:30 Metoclopramide 10 Mg/2 Ml Inj IV Q6H PRN Nausea And Vomiting Ondansetron HCl 4 mg 05/19/20 21:30 Ondansetron 4 Mg/2 Ml Inj IV Q8H PRN Nausea And Vomiting Oxycodone/Acetaminophen 1 tab 05/19/20 21:30 Oxycodone /Acetaminophen 5-325mg Tab PO Q6H PRN Pain, Moderate (4-6) Promethazine HCl 25 mg 05/19/20 21:30 Promethazine 25 Mg Rect Supp [place] Q6H PRN N/V IF NPO AND NO IV ACCESS Sodium Chloride 10 ml 05/19/20 22:00 05/20/20 21:29 Sodium Chloride 0.9% 10 Ml Flush Syringe IV 10 ml BID VINNY Administration Sodium Chloride 10 ml 05/19/20 21:30 Sodium Chloride 0.9% 10 Ml Flush Syringe IV PRN PRN LINE FLUSH Nutrition/Malnutrition Assess - Dietary Evaluation Nutrition/Malnutrition Findings: Nutrition Notes Start: 05/20/20 15:07 Freq: Status: Active Protocol: Document 05/20/20 15:07 CW (Rec: 05/20/20 15:16 CW [email or web address]) Nutrition Notes Need for Assessment generated from: MD Order,Education Initial or Follow up Assessment Current Diagnosis Diabetes,Hypertension Current Diet Consistent Carbohyrate Diet Labs/Tests K 3.2 HbgA1c 7.1 Pertinent Medications KCl Kdur Height 6 ft Weight 106 kg Usual Body Weight 105 kg [place] Body Weight (kg) 80.90 BMI 31.6 Intake Prior to Admission Poor Weight change and time frame 1.3% weight gain Weight Status Obese Subjective/Other Information MD consult for new onset diabetes. Pt has had DM dx or years and states managing it well. BG falguni admission were WNL. A1c is WNL for diabetic and not of concern. Pt denies having questions related to Consistent carbohydrate diet. Pt denies N/V/D/C and reports a returning appetite. Pt NPO at time of visit. Percent of energy/protein needs met: 0%/0% Burn Absent Trauma Absent GI Symptoms None Current % PO Negligible Minimum of two criteria No physical signs of malnutrition #1 Nutrition Diagnosis Inadequate oral intake Etiology loss of appetite As Evidenced by Signs and Symptoms pt reports poor appetite and intake x4 days Is patient on ventilator? No Is Patient Ambulatory and/or Out of Bed Yes REE-(Gary-St. Jeor-ambulatory/OOB) [ 2286.900 NUTR.[id number]] Kcal/Kg value to use for calculation 20 Approximate Energy Requirements Using 2120 kcal/Kg Calculation Used for Recommendations Kcal/kg Additional Notes protein needs: 75 - 93 g (0.8 - 1 g/kgAdjBW 93.45kg) fluid needs 1 ml/kcal Nutrition Intervention Change Diet Order: Continue consistent carbohydrate diet Teaching Recipient Patient Learning Readiness Good Teaching Methods Discussion Response to Teaching Verbalize understanding Barriers to Learning No Barriers RD phone number provided Yes Patient aware of follow up options Yes Goal #1 Po intake that meets at least 75% of kcal and protein needs via PO Anticipated Discharge Needs: Cardiac Consistent Cabohydrate diet Follow-Up By: 05/22/20 Additional Comments F/U intakes and ONS need
[2020-05-21] MEDS ORDERED: FAMOTIDINE 20 MG TAB PO SCH (10:00)
[2020-05-21] MEDS: amLODIPine 5 MG TAB PO SCH (10:51)
[2020-05-21] MEDS: LOSARTAN 25 MG TAB PO SCH (10:51)
[2020-05-21 10:52] VITALS: BP 147/84
[2020-05-21] MEDS: HEPARIN 5,000 UNIT/1 ML VIAL SUB-Q SCH (10:53)
--- NOTE | 2020-05-21 11:27 | Progress Note ---
Assessment and Plan - Patient Problems (1) Perianal abscess Current Visit: Yes Status: Acute Plan to address problem: 1) Pt can be discharged after he is seen by the Wound Care nurse. 2) F/u in Wound Clinic 3) Discharge on Cipro and narcotic of choice. Subjective Date of service: 05/21/20 Patient Reports: Positive: no new complaints, feels better Objective Vital Signs - 12hr 05/20/20 05/21/20 05/21/20 23:50 04:50 10:42 Temperature 98.5 F 98.8 F 98.7 F Pulse Rate 82 81 88 Respiratory 20 20 20 Rate Blood Pressure 152/99 158/92 147/84 O2 Sat by Pulse 100 97 97 Oximetry 05/21/20 10:51 Temperature Pulse Rate Respiratory Rate Blood Pressure 147/84 O2 Sat by Pulse Oximetry - Labs 05/20/20 04:52 05/20/20 04:52
--- NOTE | 2020-05-21 14:06 | Discharge Summary ---
Providers - Providers Date of Admission: 05/20/20 14:25 Date of discharge: 05/21/20 Attending physician: DA STEINBERG 05/19/20 16:00 Consult to Physician [CONS] Urgent Comment: Consulting Provider: JUSTIN DOWNEY Physician Instructions: Reason For Exam: perianal abscess 05/21/20 09:00 Consult to Wound/ET Nurse [CONS] Routine Reason For Exam: wound eval Primary care physician: [employer] Hospitalization Condition: Stable Disposition: DC-01 TO HOME OR SELFCARE Time spent for discharge: 35 min Core Measure Documentation - Palliative Care Palliative Care/ Comfort Measures: Not Applicable - Core Measures Any of the following diagnoses?: none Exam - Constitutional Vitals: Temp Pulse Resp BP Pulse Ox 98.7 F 88 20 147/84 97 05/21/20 10:42 05/21/20 10:42 05/21/20 10:42 05/21/20 10:51 05/21/20 10:42 Plan Activity: advance as tolerated Diet: diabetic Wound: per wound nurse instructions Additional Instructions: Wound care per wound care nurse instructions. You have worsening symptoms contact MD or go to emergency room. Advised to follow with primary care physician and surgeon per schedule. Wound care clinic per schedule Follow up with: MALENA BLOOM MD [Primary Care Provider] - 3-5 Days JUSTIN DOWNEY MD [Staff Physician] - 7 Days Prescriptions: Ciprofloxacin HCl 500 mg PO BID #20 tablet oxyCODONE /ACETAMINOPHEN [Percocet 5/325 mg] 1 tab PO Q6H PRN #20 tablet PRN Reason: Pain, Moderate (4-6)
--- NOTE | 2020-05-21 15:10 | Post Anesthesia Evaluation ---
- Post Anesthesia Evaluation Patient Participated: Yes Airway Patent: Yes Stable Respiratory Function: Yes Nausea/Vomiting: No Pain Manageable: Yes Adequeate Hydration: Yes Anesthesia Complications: No Block Receding Appropriately: Not Applicable Patient on Ventilator: No Other Comments: pt a+o x 3. resting comfortable. denies pain. pending discharge home
[2020-05-21] MEDS ORDERED: VANCOMYCIN 1,500 MG in SODIUM CHLORIDE 0.9% 500 ML 500 ML IV SCH (18:00)
== END 2020-05-21 16:00 | disposition home health service (06) | DRG 854 ==
LOC: ED 10:00 → 3A 16:05 → OBSVTOIN 05-20 14:25
PROVIDERS: ADMIT Internal Medicine; ATTEND Internal Medicine
PROC: 0D9P0ZZ Drainage of Rectum, Open Approach (ICD-10-PCS; principal; 2020-05-20)
DX: A41.9 Sepsis, unspecified organism (principal); K61.0 Anal abscess; K61.1 Rectal abscess; E87.6 Hypokalemia; I10 Essential (primary) hypertension; E11.9 Type 2 diabetes mellitus without complications; F03.90 Unspecified dementia, unspecified severity, without behavioral disturbance, psychotic disturbance, mood disturbance, and anxiety; M10.9 Gout, unspecified; Z79.899 Other long term (current) drug therapy; Z79.84 Long term (current) use of oral hypoglycemic drugs
CPT/HCPCS: 36415; 74177; 80053; 81001; 82140; 82962; 83036; 83690; 83735; 85025; 87040; 87075; 87116; 96374; 96375; 96376; G0378; J0295; J1170; J1644; J1885; J2270; J2405; J2543; J2704; J3010; J3370; J3480; J7030; J7040; Q9967

== ENCOUNTER 2020-11-26 18:20 | Emergency (ER) | payer OTHER | END 2020-11-26 19:12 | disposition left against medical advice (07) | LOC: ED 18:20 | DX: Z20.822 Contact with and (suspected) exposure to COVID-19 (principal); Z53.21 Procedure and treatment not carried out due to patient leaving prior to being seen by health care provider ==

== ENCOUNTER 2021-05-16 19:58 | Emergency (ER) | payer SELFPAY ==
[2021-05-16 20:47] VITALS: BP 152/108
== END 2021-05-16 20:50 | disposition left against medical advice (07) ==
LOC: ED 19:58
DX: Z00.00 Encounter for general adult medical examination without abnormal findings (principal); Z53.21 Procedure and treatment not carried out due to patient leaving prior to being seen by health care provider